=== PATIENT | male | born 1985 | race Caucasian/White ===

== ENCOUNTER 2020-05-07 11:11 | Emergency (ER) | payer SELFPAY ==
[2020-05-07 11:34] VITALS: TEMP 98.2; BMI 28.3
[2020-05-07] MEDS ORDERED: diazePAM CARPU-JECT 10 MG/2 ML DISP.SYRIN IVPUSH ONE (12:23)
[2020-05-07] MEDS ORDERED: SODIUM CHLORIDE 1,000 ML IV STA (12:23)
[2020-05-07] MEDS ORDERED: THIAMINE HCL 200 MG/2 ML VIAL IVPB ONE (12:25)
[2020-05-07] MEDS ORDERED: morphine CARPU-JECT 4 MG/1 ML DISP.SYRIN IVPUSH ONE (12:26)
[2020-05-07] MEDS ORDERED: diazePAM CARPU-JECT 10 MG/2 ML DISP.SYRIN ONE (12:32)
[2020-05-07] MEDS ORDERED: THIAMINE HCL 200 MG/2 ML VIAL ONE (12:33)
[2020-05-07] MEDS ORDERED: morphine SULFATE 4 MG/ML VIAL ONE (12:33)
[2020-05-07 13:10] LABS: BASO % 1.7 % (0-2.0); HEMOGLOBIN 14.1 GM/dL (11.7-16.9); LYMPH % 11.2 % (8-40); MCH 32.7 pg (25.7-33.7); MCHC 34.3 g/dl (32.0-35.9); MEAN CELL VOLUME 95.3 fl (80-96); MEAN PLT VOLUME 7.6 fl (7.5-11.1); MONO % 7.9 % (3.8-10.2); NEUT % 79.2 % (42.8-82.8); PLATELET COUNT 118 K/MM3 (134-434); WHITE BLOOD COUNT 5.2 K/mm3 (4.0-10.0)
[2020-05-07 13:28] LABS: POTASSIUM 5.5 mmol/L (3.5-5.1)
[2020-05-07 13:29] LABS: BLOOD UREA NITROGEN 7.2 mg/dL (7-18)
[2020-05-07 13:30] LABS: ALBUMIN 3.6 g/dl (3.4-5.0); CALCIUM 8.5 mg/dL (8.5-10.1); MAGNESIUM 1.9 mg/dL (1.8-2.4)
[2020-05-07 13:33] LABS: CREATININE 0.7 mg/dL (0.55-1.3)
[2020-05-07 13:35] LABS: TOT PROT 9.3 g/dl (6.4-8.2)
[2020-05-07] MEDS ORDERED: chlordiazePOXIDE HCL 25 MG CAPSULE PO ONE (15:38)
[2020-05-07] MEDS ORDERED: chlordiazePOXIDE HCL 25 MG CAPSULE ONE (15:39)
[2020-05-07 17:05] LABS: CALCIUM 8.2 mg/dL (8.5-10.1)
[2020-05-07 17:06] LABS: ALBUMIN 3.6 g/dl (3.4-5.0); BLOOD UREA NITROGEN 7.4 mg/dL (7-18); MAGNESIUM 1.7 mg/dL (1.8-2.4)
[2020-05-07 17:09] LABS: CREATININE 0.7 mg/dL (0.55-1.3)
[2020-05-07 17:10] LABS: BILIRUBIN,TOTAL 0.7 mg/dL (0.2-1); TOT PROT 8.4 g/dl (6.4-8.2)
[2020-05-07 17:48] LABS: PH,URINE 6.5 (5.0-8.0); URINE APPEARANCE CLEAR; URINE BILIRUBIN NEGATIVE (NEGATIVE); URINE COLOR YELLOW; URINE GLUCOSE (UA) NEGATIVE (NEGATIVE); URINE KETONE TRACE (NEGATIVE); URINE LEUK ESTERASE NEGATIVE (NEGATIVE); URINE NITRITE NEGATIVE (NEGATIVE); URINE PROTEIN NEGATIVE (NEGATIVE); URINE UROBILINOGEN 0.2 mg/dL (0.2-1.0)
[2020-05-07 18:02] LABS: POTASSIUM 3.8 mmol/L (3.5-5.1)
[2020-05-07 18:44] VITALS: BP 137/79; PULSE 99
== END 2020-05-07 18:44 | disposition home or self-care (01) ==
LOC: JER 11:11
PROC: 3E033NZ Introduction of Analgesics, Hypnotics, Sedatives into Peripheral Vein, Percutaneous Approach (ICD-10-PCS; principal; 2020-05-07)
PROC: 3E033NZ Introduction of Analgesics, Hypnotics, Sedatives into Peripheral Vein, Percutaneous Approach (ICD-10-PCS; 2020-05-07)
PROC: 3E033GC Introduction of Other Therapeutic Substance into Peripheral Vein, Percutaneous Approach (ICD-10-PCS; 2020-05-07)
PROC: 3E0337Z Introduction of Electrolytic and Water Balance Substance into Peripheral Vein, Percutaneous Approach (ICD-10-PCS; 2020-05-07)
DX: R10.9 Unspecified abdominal pain (principal); F10.239 Alcohol dependence with withdrawal, unspecified; N50.819 Testicular pain, unspecified
CPT/HCPCS: 36415; 74019-TC-FY; 74177-TC; 76705-TC; 76856-TC; 76870-TC; 80053; 80307; 81003; 83690; 83735; 85025; 87086; 87491; 87591; 87661; 99285-25